=== PATIENT | female | born 1960 | race Caucasian/White ===

== ENCOUNTER 2016-10-24 14:13 | Day surgery (SDC) | payer OTHER ==
[2016-10-24] VITALS (32 sets, daily range): BP systolic 119–157; BP diastolic 47–68; PULSE 40–68; RESP 14–32; Ht 165.1 cm; Wt 107.0 kg
[~2016-10-24] VITALS: Ht 165.1 cm; Wt 107.0 kg
[2016-10-24] MEDS ORDERED: HYDR12.58 PO (14:36)
[2016-10-24] MEDS ORDERED: LOSA50TA6 PO (14:37)
[2016-10-24] MEDS ORDERED: IBUP-1542 PO (14:37)
[2016-10-24] MEDS ORDERED: METF500T4 PO (14:37)
[2016-10-24] MEDS ORDERED: KENC1 TOP (14:38)
--- NOTE | 2016-10-24 15:10 | HPN ---
Date/Time of Note Date/Time of Note DATE: 10/24/16 TIME: 15:10 Interval H&P Admission Note Pt. seen H&P reviewed: No system changes KELSEY HOWELL Oct 24, 2016 15:10
[2016-10-24] MEDS ORDERED: BUPIVACAINE 0.5% (SDV) 30 ML INJ ONE (15:18)
[2016-10-24] MEDS ORDERED: FENTAnyl 50 MCG/ML VIAL IV PRN ×3 (18:00)
[2016-10-24] MEDS ORDERED: OXYCODONE/ACETAMINOPHEN (5/325) TAB PO PRN (18:00)
[2016-10-24] MEDS ORDERED: EPHEDrine SULFATE 50 MG/5 ML SYG IV PRN (18:00)
[2016-10-24] MEDS ORDERED: HYDROmorphONE (0.2 MG/ML) 10ML SYG IV PRN ×3 (18:00)
[2016-10-24] MEDS ORDERED: MEPERIDINE 25 MG INJ IV PRN (18:00)
[2016-10-24] MEDS ORDERED: LABETALOL HCL 20MG INJ IV PRN (18:00)
[2016-10-24] MEDS ORDERED: HYDROCODONE/APAP (5/325) TAB PO PRN (18:00)
[2016-10-24] MEDS ORDERED: ONDANSETRON 4 MG INJ IV PRN (18:00)
[2016-10-24] MEDS ORDERED: hydrALAzine 20 MG INJ IV PRN (18:00)
--- NOTE | 2016-10-24 18:16 | OPR ---
DATE OF OPERATION: 10/24/2016 SURGEON: Kelsey Ballesteros MD. ANESTHESIA: General plus local. PREOPERATIVE DIAGNOSIS: 1. Left wrist Kienbock disease, stage IIIB. 2. Left carpal tunnel syndrome. POSTOPERATIVE DIAGNOSES: 1. Left wrist Kienbock disease, stage IIIB. 2. Left carpal tunnel syndrome. PROCEDURE: 1. Left wrist proximal row carpectomy. 2. Left carpal tunnel release, open. OPERATIVE FINDINGS: Sclerosis and collapse of the lunate with fragmentation. INDICATION FOR PROCEDURE: A 56-year-old female with longstanding left wrist pain. She was seen in clinic and diagnosed with a Kienbock disease. She tried conservative management including bracing a nd anti-inflammatories, but had persistent pain. We discussed the options and she elected to procee d with surgical intervention, understanding the risks and benefits. The patient also had a positive Tinel at the carpal tunnel and symptoms of carpal tunnel syndrome and, therefore, I discussed relea sing the carpal tunnel at the same time. The patient elected to proceed with this, understanding th e risks and benefits. DESCRIPTION OF PROCEDURE: The patient was seen in the preoperative area and all further questions w ere answered. Again, she gave informed consent, understanding the risks and benefits. She was take n to the operative suite and placed in supine position. She was placed under general anesthesia, an d tourniquet placed in the left upper extremity. Ancef 2 grams were given and left upper extremity was prepped with ChloraPrep stick and draped in usual sterile fashion. Esmarch bandage was used to exsanguinate the extremity and tourniquet inflated to 250 mmHg. Attention was first turned to the c arpal tunnel release and a 2 cm incision at the base of the palm was utilized with sharp dissection carried down through skin and subcutaneous tissue. The palmar aponeurosis was identified and was in cised along its ulnar border. The transverse carpal ligament was identified and was incised along i ts ulnar border approximately 3 mm radial to the hook of the hamate. A curved hemostat was used to spread distally and the transverse carpal ligament was divided distally under direct visualization. Attention was turned proximally and scissor dissection divided antebrachial fascia off the transver se carpal ligament. The ligament was divided along its ulnar border under direct visualization. Wo und was copiously irrigated and skin closed with 4-0 nylon. Attention was then turned to the dorsum of the wrist. A longitudinal incision was made centered over the radiocarpal joint approximately 6 cm. Sharp dissection carried down through skin and subcutaneous tissue. The EPL tendon was identi fied and the sheath incised with the EPL tendon retracted radially. The interval between the third and fourth compartment was utilized and the fourth extensor compartment was elevated off of the caps ule maintaining its position within its sheath. Dissection was taken ulnarly to the level of the 6t h dorsal compartment and ulnarly to the level of the radial styloid. A T-type capsulotomy was made and the capsule was elevated off of the carpal bones. The lunate was identified which was significa ntly displaced, fragmented and collapsed with the capitate essentially sitting in the lunate fossa. This confirmed the procedure and proceeded with a proximal row carpectomy. The lunate was excised with care taken to preserve the RSC ligament. The scaphoid was identified and a knife as well as a [place] elevator was used to dissect the scaphoid away from surrounding soft tissues and ligamentous a ttachments and the scaphoid was also removed with care taken to preserve the RSC ligament. The triq uetrum was then identified and was excised. The lunate was sent as a specimen and the scaphoid and triquetrum more removed from the table. X-ray imaging confirmed removal of the proximal carpal row and stressing of the wrist showed stable carpus with a preserved RSC ligament. The lunate fossa as well as the proximal capitate were well preserved and had good cartilage. The wound was copiously i rrigated and the capsule was closed with 3-0 Ethibond. The wrist was nicely stable and skin was francisca sed with 4-0 nylon. Xeroform was placed over the wounds followed by sterile gauze, Webril and a juan alberto rt arm splint with the wrist at neutral and slight ulnar deviation. Tourniquet deflated after 57 mi nutes and patient was awakened from anesthesia. She was taken to the postoperative suite in stable condition, tolerated procedure well without complication. SPECIMENS: Left lunate. ESTIMATED BLOOD LOSS: 5 mL. COUNTS: Sponge, instrument and needle correct. TOURNIQUET TIME: 57 minutes. FLUOROSCOPIC IMAGES: Fluoroscopic time 0.1 seconds. CONDITION ON DISCHARGE: Stable. Dictated By: KELSEY LEZAMA/JERROD Conf#: [id number] DID#: [id number]
--- NOTE | 2016-10-29 12:35 | RADRPT ---
PROCEDURE: X-ray fluoroscopy guidance CLINICAL INDICATION: LT WRIST CARPECTOMY TECHNIQUE: Fluoroscopic guidance was utilized for intraoperative procedure. COMPARISON: None. FINDINGS: Fluoroscopic guidance was utilized for intraoperative procedure. 15 seconds of fluoroscopy time was utilized for the procedure. 3 x-ray images were obtained during the procedure. There has been interval resection of the left scaphoid and lunate. IMPRESSION: X-ray fluoroscopic guidance utilized for intraoperative procedure. Interval resection of the left scaphoid and lunate bones. Please see procedure note details. RPTAT: EE Physician Elias Date Time Electronically viewed and signed by Physician Elias on 10/29/2016 12:35 RA/
== END 2016-10-24 20:30 | disposition home or self-care (01) ==
LOC: SDS 14:13
PROVIDERS: ATTEND Orthopaedic Surgery Hand Surgery
DX: M93.1 Kienbock's disease of adults (principal); M87.88 Other osteonecrosis, other site; G56.02 Carpal tunnel syndrome, left upper limb; I10 Essential (primary) hypertension; E11.9 Type 2 diabetes mellitus without complications; E66.01 Morbid (severe) obesity due to excess calories; Z68.39 Body mass index [BMI] 39.0-39.9, adult
CPT/HCPCS: 25130; 64721; 73110; 82962; 84703; 88304; 88311; J1170; J2175; Z7512; Z7610